=== PATIENT | male | born 1975 | race Caucasian/White ===

== ENCOUNTER 2020-03-26 10:06 | Emergency (ER) | payer BC ==
[2020-03-26 10:35] LABS: #Basophils 0.1 thou/uL (0.0-0.2); #Eosinphils 0.2 thou/uL (0.0-0.7); #Lymphocytes 2.1 thou/uL (1.20-3.40); #Monocytes 0.8 thou/uL (0.11-0.59); #Neutrophils 5.4 thou/uL (1.40-6.50); %Basophils 1.1 % (0.0-1.0); %Eosinophils 1.8 % (0.0-10.0); %Lymphocytes 24.3 % (21.0-51.0); %Monocytes 9.2 % (0.0-10.0); %Neutrophils 63.6 % (42.0-75.0); Hemoglobin 12.9 g/dL (14.0-18.0); Mean Corpuscular HGB CONC 31.3 g/dL (32.0-36.0); Mean Corpuscular Hemoglobin 27.5 pg (27.0-31.0); Mean Corpuscular Volume 87.9 fL (78.0-98.0); Mean Platelet Volume 7.9 fL (7.4-10.4); Platelet Count 254 thou/uL (130-400); RBC Distribution Width 15.5 % (11.5-14.5); White Blood Cell (WBC) Count 8.5 thou/uL (4.8-10.8)
[2020-03-26 10:51] LABS: ALT (SGPT) 301 U/L (8-55); AST (SGOT) 100 U/L (5-34); Albumin 3.7 g/dL (3.5-5.0); Alkaline Phosphatase 133 U/L (40-110); Anion Gap 16 mmol/L (10-20); BUN (Urea Nitrogen) 22 mg/dL (8.9-20.6); Bilirubin, Total 0.8 mg/dL (0.2-1.2); Calc. Creatinine Clearance 0 mL/min (70-130); Calcium 9.2 mg/dL (7.8-10.44); Carbon Dioxide 25 mmol/L (22-29); Chloride 106 mmol/L (98-107); Estimated GFR-MDRD 52; Globulin 2.7 g/dL (2.4-3.5); Glucose 100 mg/dL (70-105); Protein, Total 6.4 g/dL (6.0-8.3); Sodium 143 mmol/L (136-145)
[2020-03-26] MEDS ORDERED: Furosemide 40 MG/4 ML VIAL ONE (11:04)
[2020-03-26] MEDS ORDERED: Aspirin Chewable 81 MG TAB ONE (11:04)
[2020-03-26 11:09] LABS: CKMB 3.4 ng/mL (0-6.6)
[2020-03-26] MEDS ORDERED: Nitroglycerin 2% Ointment 1 INCH/1 GM Packet ONE (12:08)
--- NOTE | 2020-03-26 14:21 | RAD ---
CHEST TWO VIEWS: Date: 03-26-2020 FINDINGS: The heart is upper normal in size but there is no vascular congestion, edema, or pleural effusion. No focal pulmonary infiltrates were seen. The mediastinum appears normal. IMPRESSION: No acute thoracic findings. POS: HOME
== END 2020-03-26 12:10 | disposition short-term general hospital (02) ==
LOC: BURERS 10:06
DX: I11.0 Hypertensive heart disease with heart failure (principal); I50.9 Heart failure, unspecified; E66.9 Obesity, unspecified; F17.210 Nicotine dependence, cigarettes, uncomplicated; Z79.899 Other long term (current) drug therapy
CPT/HCPCS: 36415; 71046; 80053; 82553; 83880; 84484; 85025; 93005; 96374; J1940

== ENCOUNTER 2020-10-26 08:04 | Outpatient (CLI) | payer BC ==
[2020-10-26] MEDS ORDERED: Iopamidol 370 76% 100 ML VIAL ONE (12:53)
== END 2020-10-26 08:05 | disposition home or self-care (01) ==
LOC: BURCT 08:04
PROVIDERS: ATTEND Family Medicine
DX: R10.12 Left upper quadrant pain (principal); K63.89 Other specified diseases of intestine
CPT/HCPCS: 74160; Q9967